=== PATIENT | female | born 1960 | race Caucasian/White ===

== ENCOUNTER 2016-08-31 10:12 | Emergency (ER) | payer OTHER ==
[2016-08-31 10:22] VITALS: BMI 20.7
[2016-08-31] MEDS ORDERED: ONDANSETRON *ODT* 4 MG TABLET ONE (11:04)
[2016-08-31] MEDS ORDERED: METOCLOPRAMIDE HCL INJECTION 10 MG/2 ML VIAL IVPUSH ONE (11:15)
[2016-08-31] MEDS ORDERED: FAMOTIDINE 20 MG/50 ML IVPB 50 ML IVPB ONE ×2 (11:15→11:28)
[2016-08-31] MEDS ORDERED: PANTOPRAZOLE SODIUM 40 MG in SODIUM CHLORIDE 100 ML IVPB ONE (11:15)
[2016-08-31] MEDS ORDERED: morphine CARPU-JECT 2 MG/1 ML DISP.SYRIN IVPUSH ONE (11:16)
--- NOTE | 2016-08-31 11:17 | PDOC ---
History of Present Illness - General Chief Complaint: Pain, Acute Stated Complaint: STOMACH PAIN History Source: Patient Exam Limitations: No Limitations - History of Present Illness Initial Comments: 08/31/16 11:17 56 yo F with significant PMHx of migraines and depression presents with one week history of stomach pain. She describes constant 8/10 stabbing sharp epigastric pain that generalizes. Pain made worse by eating and no alleviating factors. She has extensive history of NSAID gastritis that she has seen GI Dr. Greco in past with peptic ulcer seen on EGD 2015, She was placed on PPI and this usually helps but this time it has lasted longer than the usual 2- 3days. Pain accompanied by nausea and chills but no fevers. Denies CP,SOB, palpitations, vomiting, or diarrhea. Past History - Past Medical History Allergies/Adverse Reactions: Allergies Allergy/AdvReac Type Severity Reaction Status Date / Time shellfish derived Allergy Verified 08/31/16 10:23 aspirin AdvReac Verified 08/31/16 10:23 caffeine AdvReac Verified 08/31/16 10:23 Home Medications: Ambulatory Orders Clonazepam 1 mg PO PRN PRN 11/12/15 Butalb/Acetaminophen/Caffeine [Zidccn-Pokqoxdl-Dpas 50-325-40] 1 each PO DAILY PRN 08/31/16 Gabapentin [Neurontin] 600 mg PO BID 08/31/16 Non-Formulary 25 mg [place] DAILY PRN 08/31/16 Nortriptyline HCl [Pamelor -] 25 mg PO BID 08/31/16 Omeprazole 40 mg PO DAILY 08/31/16 Pantoprazole Sodium [Protonix] 40 mg PO DAILY #14 tablet. 08/31/16 Sucralfate [Carafate] 1 gm PO QID #300 ml 08/31/16 Sumatriptan Succinate [Onzetra Xsail] 11 mg NS DAILY 08/31/16 Trazodone HCl [Desyrel -] 100 mg PO HS 08/31/16 Venlafaxine HCl ER [Effexor Xr -] 75 mg PO DAILY 08/31/16 GI Disorders: Yes (GERD) Hypercholesterolemia: Yes - Surgical History Appendectomy: Yes - Psycho/Social/Smoking Cessation Hx Suicidal Ideation: No Smoking History: Never smoked Hx Alcohol Use: No Drug/Substance Use Hx: No Substance Use Type: None Hx Substance Use Treatment: No *Physical Exam - Vital Signs Last Vital Signs Temp Pulse Resp BP Pulse Ox 97.9 F 112 H 18 97/53 98 08/31/16 10:20 08/31/16 10:20 08/31/16 10:20 08/31/16 10:20 08/31/16 10:20 ED Treatment Course - LABORATORY CBC & Chemistry Diagram: 08/31/16 11:15 08/31/16 11:15 - RADIOLOGY Chest X-Ray Result: No Infiltrates Radiograph Interpretation: 08/31/16 14:46 EXAM#: TYPE/EXAM: RESULT: [id number] RAD/CHEST X-RAY PORTABLE* CHEST: Clinical History: Abdominal pain. Frontal view of the chest is provided. Lungs alarcon appear clear, without evidence of infiltrate or effusion. Cardiomediastinal silhouette is within normal limits. Visualized bony structures appear intact. IMPRESSION: No acute disease in the chest. Reported By: Carmencita Wright MD 08/31/16 14:46 EXAM#: TYPE/EXAM: RESULT: [id number] RAD/ABDOMEN [id number] Abdominal pain. Abdomen 2 views. The cardiac silhouette is not enlarged. No airspace opacities, pleural effusion is seen in the visualized lungs. Nonspecific gas pattern of GI tract. No evidence of intestinal obstruction, or pneumoperitoneum. Disc space narrowing at L4- L5 with bilateral lateral spondylosis. Disc space narrowing at L5-S1 is suggested. Pelvic calcification are noted, clinically correlate for calcified uterine fibroid. Impression. No evidence of intestinal obstruction, or pneumoperitoneum Reported By: Wilmer Howard MD Medical Decision Making - Medical Decision Making 08/31/16 11:30 A:56 yo F with significant PMHx of migraines and depression presents with one week history of stomach pain. Most likely PUD. P: * CBC,CMP,UA,Lipase * Flat and upright Xray. CXR ordered * Reglan, Pepcid, and protonix IV ordered. 08/31/16 14:42 * CBC, CMP , Lipase all WNL * XRAY of chest and abdomen show no acute pathology * Responded very well to IV meds. * Most likely PUD * Spoke with GI Dr. Greco who states she can follow up in his office. * Will send with Carafate and protonix for symptomatic relief. *DC/Admit/Observation/Transfer Diagnosis at time of Disposition: Peptic ulcer - Discharge Dispostion Disposition: HOME Condition at time of disposition: Stable Admit: No - Referrals Referrals: Jyoti Arriola [Primary Care Provider] - Wilbert Ernandez MD [Staff Physician] - - Patient Instructions Printed Discharge Instructions: DI for Peptic Ulcer Additional Instructions: Please take you medications as directed. Follow up with Dr. Ernandez in one week. [place] diet. Increase activity as tolerated. If pain worsens or you develop fever/chills please return to ER.
[2016-08-31] MEDS ORDERED: METOCLOPRAMIDE HCL INJECTION 10 MG/2 ML VIAL ONE (11:28)
[2016-08-31] MEDS ORDERED: PANTOPRAZOLE SODIUM 100 ML IVPB ONE (11:28)
--- NOTE | 2016-08-31 12:22 | PDOC ---
Attending Attestation - Resident Resident Name: Jose Angel Cobos - ED Attending Attestation I have performed the following: I have examined & evaluated the patient, The case was reviewed & discussed with the resident, I agree w/resident's findings & plan, Exceptions are as noted - HPI HPI: 08/31/16 12:20 56-year-old female with history of chronic gastritis and migraines presents with epigastric pain worsening over the last 6 days in the setting of URI 3 weeks ago requiring [id number] medications and NSAIDs. Dark brown stool 5 days ago, constipated since then. - Physicial Exam PE: 08/31/16 12:20 Slight tachycardia, afebrile. Abdomen is soft and nondistended but with tenderness and guarding in the epigastric region, rebound localizing to the epigastric region - Medical Decision Making 08/31/16 12:21 Patient seen and evaluated with the resident. I agree with the overall evaluation, assessment, and management with the following summary of visit: 56-year-old female with acute on chronic gastritis, known PUD. Rule out bleed, rule out perforation, rule out pancreatitis. No cardiopulmonary complaints. Labs, urinalysis EKG, chest x-ray, abdominal x-ray Pain control, antacid Reassess, discuss with Dr. Ernandez, the patient's gastrologist Heart Score/ECG Review #1 ECG reviewed & interpreted by me at: 12:15 General ECG Interpretation: Sinus Rhythm, Normal Rate (75), Normal Intervals, No acute ischemic changes (septal Q waves, no ST changes)
[2016-08-31 12:29] LABS: BASOPHIL 0.6 % (0-2.0); EOSINOPHIL 1.4 % (0-4.5); MCH 31.3 pg (25.7-33.7); MCHC 33.2 g/dl (32.0-36.0); MEAN CELL VOLUME 94.5 fl (80-96); MEAN PLT VOLUME 7.6 fl (7.5-11.1); NEUTROPHILS 60.7 % (42.8-82.8); PLATELET COUNT 260 K/MM3 (134-434); RDW 12.5 % (11.6-15.6); WHITE BLOOD COUNT 5.6 K/mm3 (4.0-10.0)
[2016-08-31 12:36] LABS: ANION GAP 9 (8-16); BILIRUBIN,TOTAL 0.5 mg/dL (0.2-1.0); CO2 26 mmol/L (21-32); COCKROFT - GAULT 73.3295; CREATININE 0.8 mg/dL (0.55-1.02); GLUCOSE,RANDOM 75 mg/dL (74-106); SGOT/AST 19 U/L (15-37); SGPT/ALT 24 U/L (12-78); TOT PROT 7.3 g/dl (6.4-8.2)
[2016-08-31 12:37] LABS: ALK PHOS 42 U/L (45-117)
[2016-08-31] MEDS ORDERED: SODIUM CHLORIDE 1,000 ML IV ONE (12:45)
[2016-08-31 14:16] VITALS: BP 109/77; PULSE 78; TEMP 97.8
--- NOTE | 2016-09-01 13:33 | EKG ---
Test Reason : Blood Pressure : / mmHG Vent. Rate : 075 BPM Atrial Rate : 075 BPM P-R Int : 138 ms QRS Dur : 074 ms QT Int : 368 ms P-R-T Axes : 029 036 048 degrees QTc Int : 410 ms NORMAL SINUS RHYTHM LOW VOLTAGE QRS SEPTAL INFARCT , AGE UNDETERMINED ABNORMAL ECG WHEN COMPARED WITH ECG OF 13-NOV-2015 08:45, SEPTAL INFARCT IS NOW PRESENT Confirmed by REUBEN MENDOZA MD ([id number]) on 09/01/2016 1:33:00 PM Referred By: Confirmed By:REUBEN MENDOZA MD
== END 2016-08-31 15:11 | disposition home or self-care (01) ==
LOC: JER 10:12
PROC: 3E0337Z Introduction of Electrolytic and Water Balance Substance into Peripheral Vein, Percutaneous Approach (ICD-10-PCS; principal; 2016-08-31)
PROC: 3E033GC Introduction of Other Therapeutic Substance into Peripheral Vein, Percutaneous Approach (ICD-10-PCS; 2016-08-31)
PROC: 3E033GC Introduction of Other Therapeutic Substance into Peripheral Vein, Percutaneous Approach (ICD-10-PCS; 2016-08-31)
PROC: 3E033NZ Introduction of Analgesics, Hypnotics, Sedatives into Peripheral Vein, Percutaneous Approach (ICD-10-PCS; 2016-08-31)
PROC: 3E033GC Introduction of Other Therapeutic Substance into Peripheral Vein, Percutaneous Approach (ICD-10-PCS; 2016-08-31)
DX: K27.9 Peptic ulcer, site unspecified, unspecified as acute or chronic, without hemorrhage or perforation (principal); K21.9 Gastro-esophageal reflux disease without esophagitis; G43.909 Migraine, unspecified, not intractable, without status migrainosus; F41.9 Anxiety disorder, unspecified
CPT/HCPCS: 36415; 71010-TC; 74020-TC; 80053; 83690; 85025; 93005; 93010; 96361; 96365; 96367; 96374; 96375; 99285-25

== ENCOUNTER 2017-03-23 15:30 | Emergency (ER) | payer OTHER ==
[2017-03-23 15:41] VITALS: BP 97/73; PULSE 84; TEMP 97.9; BMI 18.9
[2017-03-23] MEDS ORDERED: KETOROLAC TROMETHAMINE 30 MG/1 ML VIAL IVPUSH ONE (15:41)
[2017-03-23] MEDS ORDERED: METOCLOPRAMIDE HCL INJECTION 10 MG/2 ML VIAL IVPUSH ONE (15:41)
--- NOTE | 2017-03-23 15:41 | PDOC ---
Rapid Medical Evaluation Time Seen by Provider: 03/23/17 15:36 Medical Evaluation: Allergies Allergy/AdvReac Type Severity Reaction Status Date / Time shellfish derived Allergy Verified 03/23/17 15:36 caffeine AdvReac Verified 03/23/17 15:36 03/23/17 15:38 I have performed a brief in-person evaluation of this patient. The patient presents with a chief complaint of: "I have a migraine." Pertinent physical exam findings: Neuro: CN2-12 grossly intact. Gait steady. I have ordered the following: H/L, NS 1L bolus, CBC, BMP, Reglan 20mg IVSS, Benadryl 50mg, Toradol 30mg The patient will proceed to the ED for further evaluation. Discharge Disposition - Diagnosis Headache Qualifiers: Headache type: unspecified Headache chronicity pattern: unspecified pattern Intractability: intractable Qualified Code(s): R51 - Headache - Referrals - Patient Instructions - Post Discharge Activity
[2017-03-23 16:26] LABS: URINE APPEARANCE SLCLOUDY; URINE BILIRUBIN NEGATIVE (NEGATIVE); URINE BLOOD NEGATIVE (NEGATIVE); URINE COLOR DKYELLOW; URINE GLUCOSE (UA) NEGATIVE (NEGATIVE); URINE KETONE NEGATIVE (NEGATIVE); URINE NITRITE NEGATIVE (NEGATIVE); URINE PROTEIN NEGATIVE (NEGATIVE); URINE UROBILINOGEN NEGATIVE mg/dL (0.2-1.0)
[2017-03-23] MEDS ORDERED: KETOROLAC TROMETHAMINE 30 MG/1 ML VIAL ONE (16:34)
[2017-03-23] MEDS ORDERED: METOCLOPRAMIDE HCL INJECTION 10 MG/2 ML VIAL ONE (16:34)
[2017-03-23] MEDS ORDERED: SODIUM CHLORIDE 0.9% 1000 ML INFUS.BAG IV ONE (16:35)
[2017-03-23 16:36] LABS: BASOPHIL 0.5 % (0-2.0); EOSINOPHIL 0.9 % (0-4.5); MCH 31.5 pg (25.7-33.7); MCHC 32.9 g/dl (32.0-36.0); MEAN CELL VOLUME 95.9 fl (80-96); MEAN PLT VOLUME 7.4 fl (7.5-11.1); NEUTROPHILS 64.1 % (42.8-82.8); PLATELET COUNT 322 K/MM3 (134-434); RDW 12.1 % (11.6-15.6)
[2017-03-23] MEDS ORDERED: METOCLOPRAMIDE HCL INJECTION 10 MG/2 ML VIAL IM ONE (16:39)
--- NOTE | 2017-03-23 16:47 | PDOC ---
History of Present Illness - General Chief Complaint: Migraine Headache Stated Complaint: MIGRAINES Time Seen by Provider: 03/23/17 15:36 History Source: Patient Exam Limitations: No Limitations - History of Present Illness Initial Comments: 03/23/17 16:40 Patient is a 56-year-old female, history of migraines on a daily basis. Give gastric ulcer presents emergency department requesting 3 medications for migraine that she receives in the past usually takes sumatriptan for migraines however states that it causes stomach upset and she is unable to take it on a regular basis. Pain followed by a neurologist, CT scan and MRI all negative for acute intracranial pathology. Patient states that she has to work tomorrow and just needs to have these medications along with some normal saline in order to feel better so she can work tomorrow. She denies any chest pain, no shortness of breath, no visual disturbance, no neck pain, no other complaints. Headache is unchanged from previous episodes. Past Medical History: [Denies]. Allergies: No known allergies Medications: [sumatriptan, omeprazole] Family History: Non-contributory Social History: Denies smoking, alcohol use, or IVDU Vital signs on arrival are [notable for pulse of 84] Review of Systems GENERAL/CONSTITUTIONAL: [No fever or chills. No weakness. No weight change.] HEAD, EYES, EARS, NOSE AND THROAT: [No change in vision. No ear pain or discharge. No sore throat. ] CARDIOVASCULAR: [No chest pain or shortness of breath.] RESPIRATORY: [No cough, wheezing, or hemoptysis.] GASTROINTESTINAL: [No nausea, vomiting, diarrhea or constipation. No rectal bleeding.] GENITOURINARY: [No dysuria, frequency, or change in urination.] MUSCULOSKELETAL: [No joint or muscle swelling or pain. No neck or back pain.] SKIN AND BREASTS: [No rash or easy bruising.] NEUROLOGIC: [Frontal headache, no vertigo, no loss of consciousness, no loss of sensation.] PSYCHIATRIC: [No depression or anxiety.] ENDOCRINE: [No increased thirst. No abnormal weight change.] HEMATOLOGIC/LYMPHATIC: [No anemia, easy bleeding, or history of blood clots.] ALLERGIC/IMMUNOLOGIC: [No hives or skin allergy. No latex allergy.] Physical Exam: GENERAL: [The patient is awake, alert, and fully oriented, in no acute distress. ] HEAD: [Normal with no signs of trauma.] EYES: [Pupils equal, round and reactive to light, extraocular movements intact, sclera anicteric, conjunctiva clear.] ENT: [Ears normal, nares patent, oropharynx clear without exudates. Moist mucous membranes. No uvula deviation] NECK: [Normal range of motion, supple without lymphadenopathy, JVD, or masses.] LUNGS: [Breath sounds equal, clear to auscultation bilaterally. No wheezes, and no crackles.] HEART: [Regular rate and rhythm, normal S1 and S2 without murmur, rub or gallop. ] ABDOMEN: [Soft, nontender, normoactive bowel sounds. No guarding, no rebound. No masses. No bruising or abrasions] RECTAL : [Guaiac negative, normal rectal tone.] MUSCULOSKELETAL: [Normal range of motion, no edema. No clubbing or cyanosis. No cords, erythema, or tenderness. No CVA Tenderness with fist.] NEUROLOGICAL: [Cranial nerves II through XII grossly intact. Normal speech, normal gait.] PSYCH: [Normal mood, normal affect.] SKIN: [Warm, Dry, normal turgor, no rashes or lesions noted.] 03/23/17 16:47 Past History - Past Medical History Allergies/Adverse Reactions: Allergies Allergy/AdvReac Type Severity Reaction Status Date / Time shellfish derived Allergy Verified 03/23/17 15:36 caffeine AdvReac Verified 03/23/17 15:36 Home Medications: Ambulatory Orders Clonazepam 1 mg PO PRN PRN 11/12/15 Non-Formulary 25 mg [place] DAILY PRN 08/31/16 Omeprazole 40 mg PO DAILY 08/31/16 Pantoprazole Sodium [Protonix] 40 mg PO DAILY #14 tablet. 08/31/16 Sucralfate [Carafate] 1 gm PO QID #300 ml 08/31/16 Sumatriptan Succinate [Onzetra Xsail] 11 mg NS DAILY 08/31/16 Trazodone HCl [Desyrel -] 100 mg PO HS 08/31/16 Oxycodone HCl/Acetaminophen [Percocet 10-325 mg Tablet] 1 each PO Q6H #8 tablet MDD 4 03/23/17 COPD: No GI Disorders: Yes (GERD) Hypercholesterolemia: Yes Other medical history: MIGRANES - Surgical History Appendectomy: Yes - Suicide/Smoking/Psychosocial Hx Smoking History: Never smoked Hx Alcohol Use: No Drug/Substance Use Hx: No Substance Use Type: None Hx Substance Use Treatment: No *Physical Exam - Vital Signs Last Vital Signs Temp Pulse Resp BP Pulse Ox 97.9 F 84 19 97/73 97 03/23/17 15:36 03/23/17 15:36 03/23/17 15:36 03/23/17 15:36 03/23/17 15:36 ED Treatment Course - LABORATORY CBC & Chemistry Diagram: 03/23/17 15:50 03/23/17 15:50 - ADDITIONAL ORDERS Additional order review: Laboratory Results 03/23/17 15:55 Urine Color Dkyellow Urine Appearance Slcloudy Urine pH 5.0 Ur Specific [place] 1.023 Urine Protein Negative Urine Glucose (UA) Negative Urine Ketones Negative Urine Blood Negative Urine Nitrite Negative Urine Bilirubin Negative Urine Urobilinogen Negative Medical Decision Making - Medical Decision Making 03/23/17 16:48 A/P: Patient here for treatment of chronic headache, states that the medications she currently takes she has been taking recommended dose and headache persist however is unchanged since previous episodes. States that when this happens usually comes to emergency departments and gets 30 medications that resolved the headache. I will give patient Reglan, Benadryl and Toradol, 1 L of normal saline then reevaluate CBC and urinalysis were performed by triage nurse practitioner Laboratory Results - last 24 hr 03/23/17 03/23/17 15:50 15:55 WBC 6.0 RBC 4.21 Hgb 13.3 Hct 40.4 MCV 95.9 MCH 31.5 MCHC 32.9 RDW 12.1 Plt Count 322 D MPV 7.4 L Neutrophils % 64.1 Lymphocytes % 29.4 Monocytes % 5.1 Eosinophils % 0.9 Basophils % 0.5 Urine Color Dkyellow Urine Appearance Slcloudy Urine pH 5.0 Ur Specific [place] 1.023 Urine Protein Negative Urine Glucose (UA) Negative Urine Ketones Negative Urine Blood Negative Urine Nitrite Negative Urine Bilirubin Negative Urine Urobilinogen Negative 03/23/17 18:40 Patient's services better after therapy, and normal saline will DC patient home with 24 hours of Percocet explained to patient we are unable to give her Percocet while in the emergency department because it may cause dizziness and she drove to the emergency department. She verbalized Understanding will follow-up with neurology *DC/Admit/Observation/Transfer Diagnosis at time of Disposition: Headache Qualifiers: Headache type: unspecified Headache chronicity pattern: unspecified pattern Intractability: intractable Qualified Code(s): R51 - Headache - Discharge Dispostion Disposition: HOME Condition at time of disposition: Stable Admit: No - Prescriptions Prescriptions: Oxycodone HCl/Acetaminophen [Percocet 10-325 mg Tablet] 1 each PO Q6H #8 tablet MDD 4 - Referrals Referrals: Jyoti Arriola [Primary Care Provider] - - Patient Instructions Printed Discharge Instructions: DI for Migraine, Migraine Headaches ( Alternative Therapy) Additional Instructions: Please increase fluids Follow-up with neurology 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
[2017-03-23 17:01] LABS: ANION GAP 11 (8-16); CALCIUM 8.5 mg/dL (8.5-10.1); CO2 26 mmol/L (21-32); CREATININE 0.8 mg/dL (0.55-1.02); GLUCOSE,RANDOM 95 mg/dL (74-106)
[2017-03-23 18:31] LABS: URINE LEUK ESTERASE Negative (NEGATIVE)
== END 2017-03-23 18:55 | disposition home or self-care (01) ==
LOC: JERFT 15:30
PROC: 3E023GC Introduction of Other Therapeutic Substance into Muscle, Percutaneous Approach (ICD-10-PCS; principal; 2017-03-23)
PROC: 3E0333Z Introduction of Anti-inflammatory into Peripheral Vein, Percutaneous Approach (ICD-10-PCS; 2017-03-23)
PROC: 3E033GC Introduction of Other Therapeutic Substance into Peripheral Vein, Percutaneous Approach (ICD-10-PCS; 2017-03-23)
PROC: 3E033GC Introduction of Other Therapeutic Substance into Peripheral Vein, Percutaneous Approach (ICD-10-PCS; 2017-03-23)
DX: G43.909 Migraine, unspecified, not intractable, without status migrainosus (principal); R51 Headache; K21.9 Gastro-esophageal reflux disease without esophagitis; E78.00 Pure hypercholesterolemia, unspecified
CPT/HCPCS: 36415; 80048; 81003; 85025; 99281-25